=== PATIENT | female | born 1990 | race Caucasian/White ===

== ENCOUNTER 2016-07-30 07:19 | Inpatient (IN) | payer OTHER ==
[~2016-07-30] VITALS: Ht 162.6 cm; Wt 105.9 kg
[2016-07-30 19:28] VITALS: BP 140/92; PULSE 91; RESP 18
[2016-07-30 19:40] VITALS: Ht 162.6 cm; Wt 105.9 kg
[2016-07-30] MEDS ORDERED: LACTATED RINGER'S 1,000 ML IV SCH (19:55)
[2016-07-30] MEDS ORDERED: IBUPROFEN 600 MG TAB PO PRN (20:00)
[2016-07-30] MEDS ORDERED: LIDOCAINE 1% (MPF) 30 ML INJ INJ PRN (20:00)
[2016-07-30] MEDS ORDERED: AMPICILLIN 2 GM/NS (PMX) 100 ML IV ONE (20:00)
[2016-07-30] MEDS ORDERED: CARBOPROST 250 MCG INJ IM PRN ×2 (20:00→22:30)
[2016-07-30] MEDS ORDERED: LACTATED RINGER'S 1,000 ML IV PRN (20:00)
[2016-07-30] MEDS ORDERED: OXYTOCIN 30 UNITS/LR 500 ML IV SCH ×2 (20:00)
[2016-07-30] MEDS ORDERED: BUTORPHANOL 2 MG INJ IV PRN (20:00)
[2016-07-30] MEDS ORDERED: METHYLERGONOVINE 0.2 MG INJ IM PRN (20:00)
[2016-07-30] MEDS ORDERED: OXYTOCIN 30 UNITS/LR 500 ML IV PRN ×2 (20:00→22:30)
[2016-07-30] MEDS ORDERED: MISOPROSTOL 200 MCG TAB PR PRN ×2 (20:00→22:30)
[2016-07-30 20:07] LABS: BASOPHIL # 0.1 10^3/ul (0.0-0.1); BASOPHILS % 0.5 % (0.0-2.0); EOSINOPHILS # 0.1 10^3/ul (0.0-0.5); EOSINOPHILS % 0.5 % (0.0-7.0); HEMATOCRIT 36.8 % (37.0-47.0); HEMOGLOBIN 12.5 g/dl (12.0-16.0); LYMPHOCYTES # 2.3 10^3/ul (0.8-2.9); LYMPHOCYTES % 20.5 % (15.0-51.0); MEAN CORPUSCULAR HEMOGLOBIN 30.4 pg (29.0-33.0); MEAN CORPUSCULAR VOLUME 89.5 fl (82.0-101.0); MEAN PLATELET VOLUME 8.2 fl (7.4-10.4); MONOCYTE # 0.5 10^3/ul (0.3-0.9); MONOCYTES % 4.1 % (0.0-11.0); NEUTROPHIL # 8.4 10^3/ul (1.6-7.5); NEUTROPHILS % 74.4 % (39.0-77.0); PLATELET COUNT 269 10^3/UL (140-440); RED BLOOD COUNT 4.11 10^6/ul (4.20-5.40); RED CELL DISTRIBUTION WIDTH 14.1 % (11.5-14.5); UNCORRECTED WBC 11.3 10^3/ul (4.8-10.8); WHITE BLOOD COUNT 11.3 10^3/ul (4.8-10.8)
[2016-07-30 20:09] LABS: CONDITION 1
[2016-07-30 20:20] LABS: INR 0.89; PT RATIO 0.9
[2016-07-30 20:57] LABS: ALBUMIN 3.5 g/dl (3.3-4.9)
[2016-07-30 21:00] LABS: BILIRUBIN,INDIRECT 0.1 mg/dl (0-1.1); BILIRUBIN,TOTAL 0.1 mg/dl (0.2-1.3); TOTAL PROTEIN 6.9 g/dl (6.1-8.1)
[2016-07-30 21:01] LABS: URIC ACID 3.8 mg/dl (3.1-7.9)
[2016-07-30 21:02] LABS: ALBUMIN/GLOBULIN RATIO 1.02
[2016-07-30 21:27] LABS: CREATININE 0.46 mg/dl (0.44-1.00)
[2016-07-30] MEDS: LACTATED RINGER'S 1,000 ML IV* SCH (22:15)
--- NOTE | 2016-07-30 22:15 | LDN ---
Date/Time of Note Date/Time of Note DATE: 07/30/16 TIME: 22:13 Delivery Summary of live male ; 9/9, weight 6lbs 14oz,no nuchal cord; no perineal lacerations spontaneous delivery of placenta Placenta Delivered: Spontaneously Meconium: none Perineum intact?: Yes Anesthesia type: None Estimated blood loss: 200 Sponge & Needle done & correct: Yes All needle counts correct: Yes Any foreign bodies felt in the: No Problems: Delivery Information Sex Sex: male Apgars 1 Minute: 9 5 Minute: 9 Suctioning Nose & mouth suctioned at [place]: Yes Umbilical Cord Umbilical cord with: 3 Vessels Cord presentations: no nuchal cord Cord Blood was obtained: Yes AURA ERIC MD Jul 30, 2016 22:15
[2016-07-30] MEDS: OXYTOCIN 30 UNITS/LR 500 ML IV SCH (22:36)
[2016-07-30 22:54] LABS: ADD UMIC YES; URINE BILIRUBIN (Dip) NEGATIVE (NEGATIVE); URINE BLOOD (Dip) 3+ (NEGATIVE); URINE COLOR LT. YELLOW (YELLOW); URINE GLUCOSE (Dip) NEGATIVE (NEGATIVE); URINE KETONES (Dip) TRACE (NEGATIVE); URINE LEUKOCYTE ESTERASE (Dip) 2+ (NEGATIVE); URINE NITRITE (Dip) NEGATIVE (NEGATIVE); URINE TOTAL PROTEIN (Dip) 1+ (NEGATIVE); URINE UROBILINOGEN (Dip) 0.2 E.U./dL (0.1-1.0)
[2016-07-30 23:06] LABS: BACTERIA,URINE MANY; SQUAMOUS EPITHELIAL CELL,UR MANY
--- NOTE | 2016-07-30 23:51 | DELSUM ---
Delivery Summary A-C Datetime Report Generated by CPN: 07/30/2016 23:51 DELIVERY PERSONNEL Financial Planning Analyst: Guardiano, Dodie MATERNAL INFORMATION Delivery Anesthesia: None Medications in Delivery: Pitocin 30 units Estimated Blood Loss (ml): 200 Placenta Cultured: No Maternal Complications: Other Other Maternal Complications: asymptomatic IUGR per records. Elevated BPs while in labor. LABOR SUMMARY EDC: 08/06/2016 00:00 No. Babies in Womb: 1 Attempted: No Labor Anesthesia: None LABOR INFORMATION Reason for Induction: Other Reason for Induction- Other: Scheduled induction d/t assymptomatic IUGR but came in labor Onset of Labor: 07/29/2016 09:00 Complete Dilatation: 07/30/2016 21:38 Oxytocin: N/A Group B Beta Strep: Not Done Antibiotics # of Doses: 1 Antibiotics Time of Last Dose: 2053 Steroids Given: None Reason Steroids Not Administered: Not Applicable MEMBRANES Membranes Rupture Method: Artificial Membranes Rupture Method: Artificial Rupture of Membranes: 07/30/2016 21:56 Length of Rupture (hr): 0.02 Amniotic Fluid Color: Clear Amniotic Fluid Amount: Moderate Amniotic Fluid Odor: Normal STAGES OF LABOR Stage 1 hr: 36 Stage 1 min: 38 Stage 2 hr: 0 Stage 2 min: 19 Stage 3 hr: 0 Stage 3 min: 4 Total Time in Labor hr: 37 Total Time in Labor min: 1 VAGINAL DELIVERY Episiotomy: None Laceration Extension: N/A Laceration Type: None Laceration Repair: Not Applicable Initial Vag Sponge Count: 20 Final Vag Sponge Count: 20 Initial Vag Sharps Count: 1 Final Vag Sharps Count: 1 Sponge Count Correct: Yes; Vaginal Sweep Performed Sharps Count Correct: Yes BABY A INFORMATION Infant Delivery Date/Time: 07/30/2016 21:57 Method of Delivery: Vaginal Born in Route : No : N/A Forceps: N/A Vacuum Extraction: N/A Shoulder Dystocia : N/A SHOULDER DYSTOCIA BABY A Infant Delivery Date/Time: 07/30/2016 21:57 PRESENTATION/POSITION BABY A Presentation: Cephalic Cephalic Presentation: Vertex Vertex Position: Left Occipital Anterior Breech Presentation: N/A PLACENTA INFORMATION BABY A Placenta Delivery Time : 07/30/2016 22:01 Placenta Method of Delivery: Spontaneous Placenta Status: Delivered SCORES BABY A Heart Rate 1 min: >100 bpm Resp Effort 1 min: Good Cry Reflex Irritability 1 min: Cough/Sneeze/Pulls Away Muscle Tone 1 min: Active Motion Color 1 min: Body Nile, Extremit Blue Resuscitation Effort 1 min: Tactile Stimulation SCORE 1 MIN: 9 Heart Rate 5 min: >100 bpm Resp Effort 5 min: Good Cry Reflex Irritability 5 min: Cough/Sneeze/Pulls Away Muscle Tone 5 min: Active Motion Color 5 min: Body Nile, Extremit Blue Resuscitation Effort 5 min: Tactile Stimulation SCORE 5 MIN: 9 INFORMATION BABY A Gestational Age at Delivery: 39.0 Gestational Status: Full Term- 39- 40.6 Weeks Infant Outcome : Liveborn Infant Condition : Stable Infant Sex: Male IDENTIFICATION/MEDS BABY A ID Band Number: [id number] ID Band Location: Right Leg; Left Arm Sensor Applied: Yes Sensor Number: [id number] Sensor Location : Cord Clamp Vitamin K Given : Not Given Erythromycin Given: Not Given WEIGHT/LENGTH BABY A Infant Birthweight (gm): 3115 Weight (lb): 6 Infant Weight (oz): 14 Length (in): 19.00 Length (cm): 48.26 CORD INFORMATION BABY A No. Cord Vessels: 3 Nuchal Cord : N/A Cord Blood Taken: Yes Suction: None; Mouth ASSESSMENT BABY A Complications: None Physical Findings at Delivery: Within Normal Limits Infant Respirations: Appears Normal Senior Market Intelligence Consultant/ALS Called : No Infant Care By: KAMLESH FELDMAN Transferred To: Remains with Mother
[2016-07-30 23:55] VITALS: BP 115/61; PULSE 81; RESP 20
[2016-07-31] MEDS ORDERED: AMPICILLIN 1 GM/NS (PMX) 50 ML IV SCH
[2016-07-31 00:50] VITALS: BP 133/88; PULSE 91; RESP 20
[2016-07-31 01:20] VITALS: BP 118/82; PULSE 75; RESP 18
[2016-07-31] MEDS: OXYTOCIN 30 UNITS/LR 500 ML IV SCH (03:27)
[2016-07-31] MEDS: IBUPROFEN 800 MG TAB PO PRN ×3 (04:03→17:42)
[2016-07-31 04:05] VITALS: BP 125/80; PULSE 72; RESP 18
[2016-07-31] MEDS: LACTATED RINGER'S 1,000 ML IV* SCH ×2 (06:15→14:15)
[2016-07-31 07:32] LABS: BASOPHIL # 0.1 10^3/ul (0.0-0.1); BASOPHILS % 0.4 % (0.0-2.0); EOSINOPHILS % 0.3 % (0.0-7.0); HEMATOCRIT 33.3 % (37.0-47.0); HEMOGLOBIN 11.4 g/dl (12.0-16.0); LYMPHOCYTES # 2.7 10^3/ul (0.8-2.9); LYMPHOCYTES % 18.3 % (15.0-51.0); MEAN CORPUSCULAR HEMOGLOBIN 30.5 pg (29.0-33.0); MEAN CORPUSCULAR HGB CONC 34.3 g/dl (32.0-37.0); MEAN CORPUSCULAR VOLUME 88.9 fl (82.0-101.0); MEAN PLATELET VOLUME 8.8 fl (7.4-10.4); MONOCYTE # 0.9 10^3/ul (0.3-0.9); MONOCYTES % 5.8 % (0.0-11.0); NEUTROPHIL # 11.2 10^3/ul (1.6-7.5); NEUTROPHILS % 75.2 % (39.0-77.0); PLATELET COUNT 248 10^3/UL (140-440); RED BLOOD COUNT 3.75 10^6/ul (4.20-5.40); RED CELL DISTRIBUTION WIDTH 14.1 % (11.5-14.5); UNCORRECTED WBC 14.9 10^3/ul (4.8-10.8); WHITE BLOOD COUNT 14.9 10^3/ul (4.8-10.8)
[2016-07-31 07:41] LABS: CONDITION 1
[2016-07-31 08:30] VITALS: BP 122/78; PULSE 87; RESP 18
[2016-07-31] MEDS: SENNA/DOCUSATE NA (8.6MG/50MG) TAB PO SCH ×2 (09:00→21:00)
[2016-07-31 16:32] VITALS: BP 100/55; PULSE 84; RESP 18
[2016-07-31 20:00] VITALS: BP 112/70; PULSE 80; RESP 16
--- NOTE | 2016-07-31 23:48 | PN ---
Date/Time of Note Date/Time of Note DATE: 07/31/16 TIME: 23:46 OB Subjective Subjective Subjective patient doing well, s/p , PPD#1 OB Objective Objective Objective Abdomen- fundus firm, n/t Perineum- scant lochia Ext- no edema OB Assessment/Plan Other Assessment: s/p , doing well Other plan: routine PP care likely d/c home tomorrow AURA ERIC MD Jul 31, 2016 23:48
[2016-08-01] MEDS: IBUPROFEN 800 MG TAB PO PRN ×4 (00:16→18:03)
[2016-08-01 04:00] VITALS: BP_SYST 104; BP_SYST 96; BP_DIAS 53; BP_DIAS 65; PULSE 74; PULSE 84; RESP 20
[2016-08-01 07:45] VITALS: BP 114/75; PULSE 92; RESP 18
[2016-08-01] MEDS: SENNA/DOCUSATE NA (8.6MG/50MG) TAB PO SCH (09:00)
[2016-08-01 11:57] LABS: RUBELLA ANTIBODY - IGG 1.56
--- NOTE | 2016-08-01 15:00 | DS ---
Date/Time of Note Date/Time of Note DATE: 08/01/16 TIME: 14:58 Obstetrical Discharge Record Final Diagnosis Final Diagnosis: Term delivered Vaginal Delivery Obstetrical Delivery: Spontaneous Condition on Discharge Physical Assessment Last Vitals: Post normal vaginal delivery day 2 Afebrile vital sign is stable abdomen soft uterus firm lochia normal extremity normal patient discharged home with follow-up instruction to be seen in the clinic in 2 weeks Voiding: Yes Bowel Movement: Yes Breast: Soft, non-tender, Filling Fundus: Firm Calf Tenderness: No Patient Condition: Good STEVIE GAMA MD Aug 01, 2016 14:59
[2016-08-01 16:15] VITALS: BP 113/66; PULSE 85; RESP 20
== END 2016-08-01 20:00 | disposition home or self-care (01) | DRG 775 ==
LOC: L-D 18:42 → PP1 07-31 00:10
PROVIDERS: ADMIT Obstetrics & Gynecology; ATTEND Obstetrics & Gynecology
PROC: 10E0XZZ Delivery of Products of Conception, External Approach (ICD-10-PCS; principal; 2016-07-30 17:00)
DX: O80 Encounter for full-term uncomplicated delivery (principal); Z37.0 Single live birth; Z3A.37 37 weeks gestation of pregnancy
CPT/HCPCS: 80053; 81001; 81003; 84560; 85025; 85384; 85610; 85730; 86592; 86762; 86900; 86901; 87340; J0290; J2590; J7120